=== PATIENT | male | born 1990 | race Caucasian/White ===

== ENCOUNTER 2018-06-15 17:55 | Emergency (ER) | payer BC ==
[~2018-06-15] VITALS: Ht 172.7 cm; Wt 81.7 kg
[~2018-06-15 17:55] MED LIST: BAYER CHEWABLE81 MG PO; NOHOMEMEDICATIONS
[2018-06-15] MEDS ORDERED: UNICOMPLEX M TA1 TA1 PO (18:07)
[2018-06-15] MEDS ORDERED: FISH OIL 1,001000 M2 PO (18:07)
[2018-06-15 18:27] LABS: ABSOLUTE BASOPHILS 0.1 thou/uL (0.0-0.2); ABSOLUTE EOSINOPHILS 0.5 thou/uL (0.0-0.7); ABSOLUTE LYMPHOCYTES 2.1 thou/uL (0.8-5.3); ABSOLUTE NEUTROPHILS 9.1 thou/uL (1.6-8.1); BASOPHILS 0.8 %; EOSINOPHILS 3.6 %; HEMATOCRIT 48.7 % (42.0-52.0); HEMOGLOBIN 16.9 gm/dL (14.0-18.0); LYMPHOCYTES 16.4 %; MCH 33.4 pg (26.0-34.0); MCHC 34.6 g/dL (28.0-37.0); MCV 96.5 fL (80.0-100.0); MONOCYTES 7.6 %; MPV 7.7 fl. (7.2-11.1); NUCLEATED RBCS 0 /100WBC; PLATELET COUNT* 321 thou/uL (150-400); POLYS 71.6 %; RBC 5.05 mil/uL (4.50-6.00); RDW-CV 14.2 % (10.5-14.5); WBC 12.7 thou/uL (4.0-11.0)
[2018-06-15 18:31] LABS: ANION GAP 8 mmol/L (7-16); BUN 16 mg/dL (7-18); CALCIUM 10.2 mg/dL (8.5-10.1); CHLORIDE 103 mmol/L (98-107); CO2 26 mmol/L (21-32); CREATININE 1.5 mg/dL (0.6-1.3); GLUCOSE 95 mg/dL (70-99); POTASSIUM 3.9 mmol/L (3.5-5.1); SODIUM 137 mmol/L (136-145)
[2018-06-15 18:50] LABS: ALBUMIN 4.3 g/dL (3.4-5.0); ALKALINE PHOSPHATASE 86 U/L (46-116); SGOT 39 U/L (15-37); SGPT 72 U/L (30-65); TOTAL BILIRUBIN 0.9 mg/dL (<0.1-1.0); TOTAL PROTEIN 8.2 g/dL (6.4-8.2); TROPONIN-I LEVEL <0.06 ng/mL (<0.06)
[2018-06-15 19:05] LABS: URINE BILIRUBIN NEGATIVE (Negative); URINE BLOOD NEGATIVE (Negative); URINE CLARITY CLEAR; URINE COLOR YELLOW; URINE GLUCOSE-RANDOM NEGATIVE (Negative); URINE KETONES 1+ (Negative); URINE LEUKOCYTES-REFLEX NEGATIVE (Negative); URINE NITRITE-REFLEX NEGATIVE (Negative); URINE PROTEIN NEGATIVE (Negative); URINE SPECIFIC GRAVITY >= 1.030 (1.005-1.030); URINE UROBILINOGEN 0.2 E.U./dl (0.2-1.0)
[2018-06-15] MEDS ORDERED: NORVASC5 MG PO (21:01)
[2018-06-15 21:12] VITALS: BP 148/94
--- NOTE | 2018-06-16 17:25 | EKG ---
[place] [address] ELECTROCARDIOGRAM REPORT Name: MANUEL DAILY Room: [facility]#: [id number] Admission: 06/15/18 Attend Phys: Discharge: 06/15/18 Date of : 86 Report #: [id number] THIS REPORT FOR: //name// [facility] ED Test Date: 2018-06-15 Test Time: 18:18:37 Pat Name: MANUEL DAILY Department: Room: Gender: Flagsetter: Russell SOUSA : 1990 Requested By: Priscilla Rodriguez Order Number: [id number] MD: David Gomes Measurements Intervals [place] Rate: 74 P: 53 [place]: 129 QRS: -1 QRSD: 88 T: 34 QT: 363 QTc: 403 Interpretive Statements Sinus rhythm ST elev, probable normal early repol pattern Compared to ECG 06/13/2014 08:42:22 ST (T wave) deviation now present Electronically Signed On 06-16-2018 17:25:18 CDT by David Gomes [email or web address] <ELECTRONICALLY SIGNED> By: David Gomes MD, [facility] 06/16/18 1725 1818 181 David Gomes MD, [facility] /EPI
== END 2018-06-15 21:13 | disposition home or self-care (01) ==
LOC: M.ERS 17:55
PROVIDERS: Nurse Practitioner Family
DX: I10 Essential (primary) hypertension (principal); E86.0 Dehydration; J45.909 Unspecified asthma, uncomplicated; F17.210 Nicotine dependence, cigarettes, uncomplicated